=== PATIENT | male | born 1990 | race Caucasian/White ===

== ENCOUNTER 2018-10-25 21:17 | Emergency (ER) | payer SELFPAY ==
--- NOTE | 2018-10-25 22:18 | ER Document Report ---
ED General - General Stated Complaint: POSSIBLE OVERDOSE Time Seen by Provider: 10/25/18 21:49 Primary Care Provider: RADHA PHILLIPS MD [ASSOCIATE] - Follow up as needed Mode of Arrival: Medic Information source: Patient, Emergency Med Personnel Notes: This is a 28-year-old man with a history of depression and plantar fasciitis who states he took a pain medicine that was given to him by a friend at 6 PM because he was having pain from his plantar fasciitis. He states he had dinner and then to take in the pill around 6 PM. He states that him and his put the kids to sleep at 7 PM. He states he was watching TV. At approximately 9 PM, the patient's came in and saw the patient cyanotic and snoring and called EMS. EMS arrived and the patient had an O2 sat of 75%. They had given the patient IM Narcan. The patient quickly woke up after that. Currently he is a fairly alert and oriented x3 without any complaints. - HPI Onset: Just prior to arrival Onset/Duration: Sudden Quality of pain: No pain Severity: None Pain Level: Denies Associated symptoms: denies: Chest pain, Fever, Shortness of breath Exacerbated by: Denies Relieved by: Denies Similar symptoms previously: No Recently seen / treated by doctor: No Past Medical History - General Information source: Patient - Social History Smoking Status: Never Smoker Cigarette use (# per day): No Chew tobacco use (# tins/day): No Frequency of alcohol use: None Drug Abuse: None Lives with: Family Family History: None Patient has suicidal ideation: No Patient has homicidal ideation: No - Medical History Medical History: Negative Past Surgical History: Reports: Hx Orthopedic Surgery Review of Systems - Review of Systems Constitutional: denies: Chills, Fever EENT: No symptoms reported Cardiovascular: See HPI Respiratory: No symptoms reported Gastrointestinal: See HPI Genitourinary: No symptoms reported Male Genitourinary: No symptoms reported Musculoskeletal: No symptoms reported Skin: No symptoms reported Hematologic/Lymphatic: No symptoms reported Neurological/Psychological: See HPI Physical Exam - Vital signs Vitals: Temp Resp Pulse Ox 98.0 F 20 94 10/25/18 21:34 10/25/18 21:34 10/25/18 21:34 Notes: Physical exam: GENERAL: Patient is alert and oriented x3, no acute distress. Blood pressure is 160/76, pulse 91, O2 sat 96% on room air, respiratory rate 22. HEAD: Atraumatic, normocephalic. EYES: Pupils equal round and reactive to light, extraocular movements intact, sclera anicteric, conjunctiva are normal. ENT: TMs normal, nares patent, oropharynx clear without exudates. Moist mucous membranes. NECK: Normal range of motion, supple without obvious mass or JVD. LUNGS: Breath sounds clear to auscultation bilaterally and equal. No wheezes rales or rhonchi. HEART: Regular rate and rhythm without murmurs, rubs or gallops. ABDOMEN: Soft, normoactive bowel sounds. No tenderness to palpation. No guarding, no rebound. No masses appreciated. EXTREMITIES: Normal range of motion, no pitting or edema. No clubbing or cyanosis. NEUROLOGICAL: Cranial nerves II through XII grossly intact. Normal speech, moving all extremities. PSYCH: Normal mood, normal affect. SKIN: Warm, Dry, normal turgor, no rashes or lesions noted. Course - Re-evaluation Re-evalutation: 10/26/18 01:08 Note: Patient observed several hours in the ER. He is remained asymptomatic. He has been hemodynamically stable the whole time. On repeat assessment, is alert and oriented x3 and is without complaints. I have advised him to follow- up as necessary. - Vital Signs Vital signs: Temp Pulse Resp BP Pulse Ox 98.0 F 11 L 144/61 H 93 10/25/18 21:34 10/26/18 00:01 10/26/18 00:01 10/26/18 00:01 Discharge - Discharge Clinical Impression: Overdose-accidental Condition: Stable Disposition: HOME, SELF-CARE Additional Instructions: Recommendations: Take the nausea medicine as needed. Return to the emergency room for any worsening nausea, shortness of breath, chest pain or any concerns or getting worse. The medicine you took tonight probably was laced with a stronger opiate: I would be very careful around these medicines. Follow-up with primary care doctor Referrals: RADHA PHILLIPS MD [ASSOCIATE] - Follow up in 3-5 days
[2018-10-26 01:15] VITALS: BP 135/59
== END 2018-10-26 01:29 | disposition home or self-care (01) ==
LOC: ER 21:17
DX: T50.901A Poisoning by unspecified drugs, medicaments and biological substances, accidental (unintentional), initial encounter (principal); Y92.009 Unspecified place in unspecified non-institutional (private) residence as the place of occurrence of the external cause
CPT/HCPCS: 99284